=== PATIENT | female | born 1995 | race Two or more races ===

== ENCOUNTER 2024-01-14 02:04 | Inpatient (IN) | payer MEDICAID, OTHER ==
[~2024-01-14] VITALS: Ht 162.6 cm; Wt 56.0 kg
[2024-01-14 02:56] LABS: Urine Bacteria None Seen /hpf (None Seen)
[2024-01-14 03:13] LABS: Urine Blood Negative /uL (Negative); Urine Clarity Clear (Clear); Urine Color Colorless (Yellow); Urine Protein, UAD Negative (Negative); Urine Specific Gravity 1.007 (1.001-1.035); Urine Urobilinogen Normal (Negative); Urine WBC 1 /hpf (0 - 5)
[2024-01-14] MEDS: MORPHINE SULFATE 4 MG/ML SYR/VIAL IV ONE (03:30)
[2024-01-14] MEDS: SODIUM CHLORIDE 0.9% 1,000 ML IV ONE (03:30)
[2024-01-14 04:04] LABS: Basophils # (auto) 0 10 ^3/uL (0-0.2); Basophils % (auto) 0.3 % (0.0-2.0); Eosinophils # (auto) 0 10 ^3/uL (0-0.8); Eosinophils % (auto) 0.5 % (0.0-7.0); Hemoglobin 13.8 g/dL (12.2-16.2); Lymphocytes # (auto) 1.9 10 ^3/uL (0.4-5.4); Lymphocytes % (auto) 20.5 % (10.0-50.0); Mean Corpuscular Hgb Conc. 33.6 g/dL (32.0-36.0); Mean Corpuscular Volume 83.3 fL (80.0-100.0); Monocytes # (auto) 0.5 10 ^3/uL (0-1.3); Monocytes % (auto) 5.6 % (0.0-12.0); Neutrophils # (auto) 6.8 10 ^3/uL (1.6-8.6); Neutrophils % (auto) 73.1 % (37.0-80.0); Platelet Count (auto) 356 10^3/uL (140-450); Red Blood Cells 4.92 10^6/uL (4.0-5.20); Red Cell Distribution Width 12.6 % (11.8-14.3); White Blood Cell 9.3 10^3/uL (4.4-10.8)
[2024-01-14 04:11] VITALS: O2SAT 100
[2024-01-14 04:19] LABS: Alanine Aminotransferase 95 U/L (7-40); Albumin 4.8 g/dL (3.2-4.8); Alkaline Phosphatase 137 U/L (46-116); Anion Gap 9 (5-15); Aspartate Aminotransferase 139 U/L (13-40); BUN/Creatinine Ratio 13.1 (10.0-20.0); Bilirubin, Total 0.7 mg/dL (0.2-1.0); Blood Urea Nitrogen 11 mg/dL (9-23); Calcium 9.8 mg/dL (8.7-10.4); Carbon Dioxide 26 mmol/L (20-30); Chloride 104 mmol/L (98-107); Glucose 95 mg/dL (74-106); Lipase 41 U/L (12-53); Potassium 3.6 mmol/L (3.5-5.1); Sodium 139 mmol/L (136-145); Total Protein 7.7 g/dL (5.7-8.2)
[2024-01-14] MEDS: ONDANSETRON HCL 4 MG/2 ML VIAL IV ONE (04:26)
[2024-01-14] MEDS: KETOROLAC TROMETH 30 MG/ML 1ML VIAL IV ONE (04:43)
[2024-01-14 08:20] VITALS: PULSE 68; RESP 16; O2SAT 98
[2024-01-14] MEDS: PIPERACILLIN-TAZOB 3.375GM 100 ML IV ONE ×2 (10:00→14:05)
[2024-01-14] MEDS ORDERED: DOCUSATE SOD 100 MG CAP PO PRN (12:30)
[2024-01-14] MEDS: SODIUM CHLORIDE 0.9% 1,000 ML IV SCH (12:30)
[2024-01-14] MEDS ORDERED: NITROGLYCERIN 0.4 MG SL TAB SL PRN (12:30)
[2024-01-14] MEDS ORDERED: ONDANSETRON HCL 4 MG/2 ML VIAL IV PRN (12:30)
[2024-01-14 18:17] LABS: INR 0.99 (0.9-1.15); Partial Thromboplastin Time 26.9 SEC (24.5-34.5); Prothrombin Time 10.5 sec (9.3-11.8)
[2024-01-14 20:42] VITALS: BP 111/70; PULSE 75; RESP 18; TEMP 98; O2SAT 94
[2024-01-14] MEDS: PIPERACILLIN-TAZOB 3.375GM 100 ML IV SCH (21:03)
[2024-01-15 05:08] VITALS: BP 101/59; PULSE 64; RESP 18; TEMP 98.1; O2SAT 96
[2024-01-15 07:06] LABS: Basophils # (auto) 0 10 ^3/uL (0-0.2); Basophils % (auto) 0.3 % (0.0-2.0); Eosinophils # (auto) 0.1 10 ^3/uL (0-0.8); Hemoglobin 12.5 g/dL (12.2-16.2); Lymphocytes # (auto) 1.6 10 ^3/uL (0.4-5.4); Lymphocytes % (auto) 21.1 % (10.0-50.0); Mean Corpuscular Hemoglobin 28.2 pg (28.0-32.0); Mean Corpuscular Hgb Conc. 33.8 g/dL (32.0-36.0); Mean Corpuscular Volume 83.4 fL (80.0-100.0); Monocytes # (auto) 0.3 10 ^3/uL (0-1.3); Monocytes % (auto) 4.3 % (0.0-12.0); Neutrophils # (auto) 5.6 10 ^3/uL (1.6-8.6); Neutrophils % (auto) 73.3 % (37.0-80.0); Platelet Count (auto) 325 10^3/uL (140-450); Red Blood Cells 4.44 10^6/uL (4.0-5.20); Red Cell Distribution Width 12.8 % (11.8-14.3); White Blood Cell 7.6 10^3/uL (4.4-10.8)
[2024-01-15 07:28] LABS: Alanine Aminotransferase 150 U/L (7-40); Alkaline Phosphatase 128 U/L (46-116); Anion Gap 6 (5-15); BUN/Creatinine Ratio 13.6 (10.0-20.0); Blood Urea Nitrogen 12 mg/dL (9-23); Carbon Dioxide 25 mmol/L (20-30); Chloride 108 mmol/L (98-107); Glucose 76 mg/dL (74-106); Potassium 3.6 mmol/L (3.5-5.1); Sodium 139 mmol/L (136-145)
[2024-01-15 07:29] LABS: Albumin 3.8 g/dL (3.2-4.8); Aspartate Aminotransferase 87 U/L (13-40); Bilirubin, Total 0.5 mg/dL (0.2-1.0); Total Protein 6.3 g/dL (5.7-8.2)
[2024-01-15 08:15] VITALS: BP 110/59; PULSE 66; RESP 18; TEMP 97.9; O2SAT 100
[2024-01-15] MEDS ORDERED: GLYCOPYRROLATE 0.2 MG/ML 1ML VIAL ONE (09:23)
[2024-01-15] MEDS ORDERED: SUGAMMADEX 200mg/2ml Vial (100MG/ML) IV ONE (09:23)
[2024-01-15] MEDS ORDERED: ONDANSETRON HCL 4 MG/2 ML VIAL ONE (09:23)
[2024-01-15] MEDS ORDERED: LIDOCAINE 2% (LOCAL ANESTH.) PF 5ml SDV ONE (09:23)
[2024-01-15] MEDS ORDERED: PROPOFOL 10 MG/ML 20 ML IV ONE (09:23)
[2024-01-15] MEDS ORDERED: KETOROLAC TROMETH 30 MG/ML 1ML VIAL ONE (09:23)
[2024-01-15] MEDS ORDERED: ROCURONIUM 10MG/ML 10ML VIAL IV ONE (09:23)
[2024-01-15] MEDS ORDERED: DexAMETHasone SOD PHOS 10MG/1ML VIAL INJ ONE (09:23)
[2024-01-15] MEDS ORDERED: LIDOCAINE HCL 2% TOP JELLY 5ML TOP ONE (09:23)
[2024-01-15] MEDS ORDERED: fentaNYL CITRATE 100 MCG/2 ML VL ONE (09:24)
[2024-01-15] MEDS ORDERED: KETAMINE 50mg/ML 1ml syringe ONE (09:24)
[2024-01-15] MEDS ORDERED: ESMOLOL HCL 10 ML IV ONE (11:06)
[2024-01-15 11:29] VITALS: O2SAT 100
[2024-01-15] MEDS ORDERED: ONDANSETRON HCL 4 MG/2 ML VIAL IV PRN (11:45)
[2024-01-15] MEDS ORDERED: oxyCODONE HCL 5MG TAB PO PRN (11:45)
[2024-01-15] MEDS ORDERED: ePHEDrine SULFATE 50 MG/ML AMP IV PRN (11:45)
[2024-01-15] MEDS ORDERED: fentaNYL CITRATE 100 MCG/2 ML VL IV PRN (11:45)
[2024-01-15] MEDS ORDERED: NALOXONE HCL 0.4 MG/ML VIAL IV PRN (11:45)
[2024-01-15] MEDS ORDERED: FLUMAZENIL 0.1 MG/ML INJ 10ML MDV IV PRN (11:45)
[2024-01-15] MEDS ORDERED: hydrALAZINE HCL 20 MG/ML VL IV PRN (11:45)
[2024-01-15] MEDS: HYDROmorphone HCL 2 MG/ML VL/or syr IV PRN (12:06)
[2024-01-15] MEDS: ACETAMINOPHEN IV 1000 MG/100ML (10MG/ML) IV ONE (15:44)
[2024-01-15] MEDS: IOHEXOL 300 MG/ML 100ML BOTTLE IJ ONE (15:44)
[2024-01-15] MEDS: CELECOXIB 100 MG CAP PO ONE (15:44)
[2024-01-15] MEDS: LIDOCAINE W/ EPINEPHRINE 1% 20ML VIAL ONE (15:44)
[2024-01-15] MEDS: GABAPENTIN 100 MG CAP PO ONE (15:44)
[2024-01-15] MEDS: BUPIVACAINE HCL 0.25% P/F 10 ML VIAL ONE (15:45)
[2024-01-15] MEDS: GABAPENTIN 400 MG CAP ONE (15:45)
[2024-01-15 16:20] VITALS: BP 108/65; PULSE 61; RESP 16; TEMP 98.1; O2SAT 97
[2024-01-15] MEDS: MORPHINE SULFATE INJ 2 MG/ml SYRG IV PRN (20:35)
[2024-01-15 21:00] VITALS: BP 110/79; PULSE 96; RESP 20; TEMP 97.6; O2SAT 96
[2024-01-16 01:00] VITALS: BP 97/60; PULSE 60; RESP 18; TEMP 97.9; O2SAT 96
[2024-01-16 05:00] VITALS: BP 103/64; PULSE 64; RESP 20; TEMP 97.6; O2SAT 98
[2024-01-16 05:56] LABS: Basophils # (auto) 0 10 ^3/uL (0-0.2); Basophils % (auto) 0.1 % (0.0-2.0); Eosinophils # (auto) 0 10 ^3/uL (0-0.8); Eosinophils % (auto) 0.1 % (0.0-7.0); Hemoglobin 11.9 g/dL (12.2-16.2); Lymphocytes # (auto) 1.7 10 ^3/uL (0.4-5.4); Mean Corpuscular Hemoglobin 27.5 pg (28.0-32.0); Mean Corpuscular Hgb Conc. 33.1 g/dL (32.0-36.0); Mean Corpuscular Volume 83.2 fL (80.0-100.0); Monocytes # (auto) 0.4 10 ^3/uL (0-1.3); Monocytes % (auto) 4.7 % (0.0-12.0); Neutrophils # (auto) 7.2 10 ^3/uL (1.6-8.6); Neutrophils % (auto) 77.1 % (37.0-80.0); Platelet Count (auto) 298 10^3/uL (140-450); Red Blood Cells 4.33 10^6/uL (4.0-5.20); Red Cell Distribution Width 12.8 % (11.8-14.3); White Blood Cell 9.3 10^3/uL (4.4-10.8)
[2024-01-16 08:00] VITALS: RESP 17
[2024-01-16 09:00] VITALS: BP 107/69; PULSE 61; RESP 18; TEMP 97.8; O2SAT 98
[2024-01-16] MEDS ORDERED: LEVO500T91 PO (11:37)
== END 2024-01-16 15:00 | disposition home or self-care (01) | DRG 548 ==
LOC: ER 02:04 → OVERFLOW 12:22 → EAST 18:18
PROVIDERS: ADMIT Nurse Practitioner Family; ATTEND Internal Medicine Geriatric Medicine
PROC: 0FT44ZZ Resection of Gallbladder, Percutaneous Endoscopic Approach (ICD-10-PCS; principal; 2024-01-15 10:44)
DX: O99.63 Diseases of the digestive system complicating the puerperium (principal); K80.00 Calculus of gallbladder with acute cholecystitis without obstruction; R74.01 Elevation of levels of liver transaminase levels; O90.89 Other complications of the puerperium, not elsewhere classified; K59.00 Constipation, unspecified
CPT/HCPCS: 36415; 74177; 76705; 78226; 80053; 81001; 82247; 83690; 84702; 85025; 85610; 85730; 86850; 86900; 86901; 87081; 96361; 96365; 96366; 96375; G0378; J0131; J1100; J1885; J2001; J2405; J2543; J2704; J3490